=== PATIENT | male | born 1955 | race Caucasian/White ===

== ENCOUNTER 2021-08-17 04:43 | Day surgery (SDC) | payer BC, OTHER ==
[2021-08-17 09:29] VITALS: BMI 23.3
[2021-08-17 10:29] VITALS: TEMP 98.7
[2021-08-17 10:59] VITALS: BP 145/75; PULSE 70
== END 2021-08-17 11:06 | disposition home or self-care (01) ==
LOC: JASU-ENDO 04:43
PROVIDERS: ATTEND Internal Medicine Gastroenterology
PROC: 0DBP8ZX Excision of Rectum, Via Natural or Artificial Opening Endoscopic, Diagnostic (ICD-10-PCS; principal; 2021-08-17 10:00)
DX: Z12.11 Encounter for screening for malignant neoplasm of colon (principal); D12.8 Benign neoplasm of rectum; K57.30 Diverticulosis of large intestine without perforation or abscess without bleeding; K59.00 Constipation, unspecified; K64.8 Other hemorrhoids; I10 Essential (primary) hypertension
CPT/HCPCS: 88305-TC

== ENCOUNTER 2022-03-14 07:07 | Inpatient (IN) | payer BC, OTHER ==
[2022-03-14 07:25] VITALS: BMI 23.0
[2022-03-14] MEDS ORDERED: SODIUM CHLORIDE 1,000 ML IV STA ×2 (08:02→11:52)
[2022-03-14] MEDS ORDERED: ACETAMINOPHEN 1000 MG/100 ML BAG IVPB ONE (08:03)
[2022-03-14] MEDS ORDERED: ACETAMINOPHEN INJECTION 100 ML IVPB ONE (08:26)
[2022-03-14 09:00] LABS: CALCIUM 8.5 mg/dL (8.5-10.1)
[2022-03-14 09:01] LABS: ALBUMIN 4.1 g/dl (3.4-5.0); BLOOD UREA NITROGEN 13.6 mg/dL (7-18)
[2022-03-14 09:04] LABS: BASO % 0.6 % (0-2.0); EOS % 0.3 % (0-4.5); HEMATOCRIT 44.9 % (35.4-49); HEMOGLOBIN 15.4 GM/dL (11.7-16.9); MCH 30.6 pg (25.7-33.7); MCHC 34.2 g/dl (32.0-35.9); MEAN CELL VOLUME 89.6 fl (80-96); MEAN PLT VOLUME 6.9 fl (7.5-11.1); MONO % 7.9 % (3.8-10.2); NEUT % 79.2 % (42.8-82.8); PLATELET COUNT 177 10^3/uL (134-434); RBC 5.01 M/mm3 (4.00-5.60); RDW 14.8 % (11.9-15.9); WHITE BLOOD COUNT 13.7 K/mm3 (4.0-10.0)
[2022-03-14 09:05] LABS: TOT PROT 7.7 g/dl (6.4-8.2)
[2022-03-14 09:06] LABS: BILIRUBIN,TOTAL 2.2 mg/dL (0.2-1)
[2022-03-14 09:44] LABS: PH,URINE 6.5 (5.0-8.0); URINE APPEARANCE CLEAR; URINE BILIRUBIN NEGATIVE (NEGATIVE); URINE COLOR YELLOW; URINE GLUCOSE (UA) NEGATIVE (NEGATIVE); URINE KETONE NEGATIVE (NEGATIVE); URINE LEUK ESTERASE NEGATIVE (NEGATIVE); URINE NITRITE NEGATIVE (NEGATIVE); URINE PROTEIN NEGATIVE (NEGATIVE); URINE UROBILINOGEN 0.2 mg/dL (0.2-1.0)
[2022-03-14 09:58] LABS: INR 1.11 (0.83-1.09); PROTHROMBIN TIME (PATIENT) 12.8 SEC (9.7-13.0)
[2022-03-14 10:01] LABS: ACTIVATED PTT 28.4 SECONDS (25.2-36.5)
[2022-03-14] MEDS: CIPROFLOXACIN 400 MG/D5W 400 MG/200 ML IVPB IVPB ONE ×2 (11:53→12:30)
[2022-03-14] MEDS ORDERED: ACETAMINOPHEN 1000 MG/100 ML BAG IVPB PRN (15:12)
[2022-03-15 11:50] LABS: BASO % 0.3 % (0-2.0); EOS % 0.3 % (0-4.5); HEMATOCRIT 37.9 % (35.4-49); HEMOGLOBIN 13.1 GM/dL (11.7-16.9); LYMPH % 12.6 % (8-40); MCH 30.8 pg (25.7-33.7); MCHC 34.6 g/dl (32.0-35.9); MEAN PLT VOLUME 7.2 fl (7.5-11.1); MONO % 5.8 % (3.8-10.2); PLATELET COUNT 148 10^3/uL (134-434); RBC 4.25 M/mm3 (4.00-5.60); WHITE BLOOD COUNT 9.9 K/mm3 (4.0-10.0)
[2022-03-15 12:28] LABS: BILIRUBIN,DIRECT 0.4 mg/dL (0.0-0.2)
[2022-03-15 12:47] LABS: BLOOD UREA NITROGEN 9.3 mg/dL (7-18)
[2022-03-15 12:49] LABS: CREATININE 0.8 mg/dL (0.55-1.3)
[2022-03-15 12:51] LABS: TOT PROT 6.3 g/dl (6.4-8.2)
[2022-03-15 13:07] LABS: ALBUMIN 3.2 g/dl (3.4-5.0)
[2022-03-15] MEDS ORDERED: POTASSIUM CHLORIDE TABS 20 MEQ TABLET.ER (FP) PO ONE (13:49)
[2022-03-16 10:58] LABS: BASO % 0.5 % (0-2.0); EOS % 1.1 % (0-4.5); HEMATOCRIT 40.1 % (35.4-49); HEMOGLOBIN 13.6 GM/dL (11.7-16.9); LYMPH % 20.1 % (8-40); MCH 30.5 pg (25.7-33.7); MEAN CELL VOLUME 89.6 fl (80-96); MEAN PLT VOLUME 7.1 fl (7.5-11.1); MONO % 7.1 % (3.8-10.2); NEUT % 71.2 % (42.8-82.8); PLATELET COUNT 170 10^3/uL (134-434); RBC 4.47 M/mm3 (4.00-5.60); RDW 14.9 % (11.9-15.9); WHITE BLOOD COUNT 6.4 K/mm3 (4.0-10.0)
[2022-03-16 11:35] LABS: CALCIUM 8.5 mg/dL (8.5-10.1)
[2022-03-16 11:36] LABS: ALBUMIN 3.5 g/dl (3.4-5.0); MAGNESIUM 2.4 mg/dL (1.8-2.4)
[2022-03-16 11:39] LABS: CREATININE 0.7 mg/dL (0.55-1.3)
[2022-03-16 11:40] LABS: BILIRUBIN,TOTAL 1.5 mg/dL (0.2-1)
[2022-03-16 11:41] LABS: TOT PROT 6.9 g/dl (6.4-8.2)
[2022-03-16] MEDS ORDERED: ACETAMINOPHEN 325 MG TABLET (FP) PO PRN (17:03)
[2022-03-17] MEDS ORDERED: ENOXAPARIN NA (PORCINE) 40 MG/0.4 ML DISP.SYRIN SQ SCH (10:00)
[2022-03-17 11:02] VITALS: BP 137/84; PULSE 73; RESP 18; TEMP 97.7
[2022-03-17 11:42] LABS: BASO % 0.4 % (0-2.0); EOS % 1.3 % (0-4.5); HEMATOCRIT 40.4 % (35.4-49); LYMPH % 23.7 % (8-40); MCH 30.8 pg (25.7-33.7); MCHC 34.7 g/dl (32.0-35.9); MEAN CELL VOLUME 88.7 fl (80-96); MEAN PLT VOLUME 6.7 fl (7.5-11.1); MONO % 8.4 % (3.8-10.2); NEUT % 66.2 % (42.8-82.8); PLATELET COUNT 207 10^3/uL (134-434); RBC 4.56 M/mm3 (4.00-5.60); RDW 14.3 % (11.9-15.9); WHITE BLOOD COUNT 4.8 K/mm3 (4.0-10.0)
[2022-03-17 12:05] LABS: ALBUMIN 3.4 g/dl (3.4-5.0); BLOOD UREA NITROGEN 9.4 mg/dL (7-18); CALCIUM 8.8 mg/dL (8.5-10.1); MAGNESIUM 2.5 mg/dL (1.8-2.4)
[2022-03-17 12:08] LABS: CREATININE 0.7 mg/dL (0.55-1.3)
== END 2022-03-17 15:44 | disposition home or self-care (01) | DRG 392 ==
LOC: JER 07:07 → JERBED 12:31 → J6S 13:56 → OBSVTOIN 03-15 13:50
PROVIDERS: ADMIT Internal Medicine; ATTEND Nurse Practitioner Family
DX: K57.92 Diverticulitis of intestine, part unspecified, without perforation or abscess without bleeding (principal); E78.5 Hyperlipidemia, unspecified; I10 Essential (primary) hypertension; K43.9 Ventral hernia without obstruction or gangrene; R10.31 Right lower quadrant pain
CPT/HCPCS: 0241U-QW; 36415; 74176-TC; 76705-TC; 80053; 81003; 82150; 82248; 83615; 83690; 83735; 85025; 85610; 85730; 86140; 87086; 99285-25; G0378

== ENCOUNTER 2024-01-14 20:35 | Emergency (ER) | payer BC, OTHER ==
[2024-01-14 20:44] VITALS: BP 162/91; PULSE 86; RESP 20; TEMP 97.5; BMI 23.0
[2024-01-14 22:34] LABS: BASO % 0.6 % (0-2.0); EOS % 0.8 % (0-4.5); HEMATOCRIT 41.1 % (35.4-49); HEMOGLOBIN 14.8 GM/dL (11.7-16.9); LYMPH % 28.3 % (8-40); MCH 31.4 pg (25.7-33.7); MEAN CELL VOLUME 87.1 fl (80-96); MEAN PLT VOLUME 6.6 fl (7.5-11.1); NEUT % 61.3 % (42.8-82.8); PLATELET COUNT 144 10^3/uL (134-434); RBC 4.72 M/mm3 (4.00-5.60); RDW 15.2 % (11.9-15.9); WHITE BLOOD COUNT 4.6 K/mm3 (4.0-10.0)
[2024-01-14 22:54] LABS: POTASSIUM 4.1 mmol/L (3.5-5.1)
[2024-01-14 22:55] LABS: ALBUMIN 4.3 g/dl (3.4-5.0); BLOOD UREA NITROGEN 13.2 mg/dL (7-18); CALCIUM 9.3 mg/dL (8.5-10.1)
[2024-01-14] MEDS: MINERAL OIL ENEMA 133 ML ENEMA RC ONE (22:56)
[2024-01-14 22:58] LABS: CREATININE 0.8 mg/dL (0.55-1.3)
[2024-01-14 23:00] LABS: BILIRUBIN,TOTAL 1.5 mg/dL (0.2-1); TOT PROT 7.5 g/dl (6.4-8.2)
[2024-01-15] MEDS ORDERED: MAGNESIUM CITRATE 300 ML BOTTLE ONE (00:11)
[2024-01-15] MEDS: MAGNESIUM CITRATE 300 ML BOTTLE PO ONE (00:23)
== END 2024-01-15 00:26 | disposition home or self-care (01) ==
LOC: JER 20:35
DX: K56.41 Fecal impaction (principal)
CPT/HCPCS: 36415; 74018-TC-FY; 80053; 82272; 83735; 85025; 99284-25